=== PATIENT | female | born 2000 | race Caucasian/White ===

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

== ENCOUNTER → 2021-10-06 03:42 | Observation (INO) ==
[2021-10-06 02:34] LABS: Bilirubin,Urine Negative (Negative); Blood,Urine Negative (Negative); Clarity,Urine Clear (Clear); Color,Urine Yellow (Yellow); Glucose,Urine (UA) Normal (Normal); Ketones,Urine Negative (Negative); Leukocyte Esterase,Urine Trace (Negative); Nitrite,Urine Negative (Negative); PH,Urine 7.5 pH Units (5.0-8.0); Protein,Urine Negative (Neg-Trace); Urobilinogen,Urine Normal (Normal)
[2021-10-06 02:35] LABS: Bacteria,Urine Few per hpf (None-Few); RBC,Urine 0-3 per hpf (0-3); Squamous Epithelial Cell,Urine Few per hpf (None-Few); WBC,Urine 0-3 per hpf (0-3)
[2021-10-06 03:34] LABS: Gardnerella DNA Not Detected (Not Detect); Trichomonas DNA Not Detected (Not Detect)
[2021-10-06 03:35] LABS: Candida DNA Not Detected (Not Detect)
== END | disposition home or self-care (01) ==
LOC: 1NENULAB
PROVIDERS: ADMIT Obstetrics & Gynecology; ATTEND Obstetrics & Gynecology

== ENCOUNTER → 2021-10-22 16:50 | Observation (INO) | END | disposition home or self-care (01) | LOC: 1NENULAB | PROVIDERS: ADMIT Obstetrics & Gynecology; ATTEND Obstetrics & Gynecology ==

== ENCOUNTER 2021-10-31 07:52 | Inpatient (IN) ==
[2021-10-31] MEDS ORDERED: *HR* Nalbuphine 10 MG/ML AMPUL IV PRN (07:54)
[2021-10-31] MEDS ORDERED: Ondansetron 4 MG/2 ML VIAL IVP PRN (07:54)
[2021-10-31] MEDS ORDERED: Metoclopramide 10 MG/2 ML VIAL IVP PRN (07:54)
[2021-10-31] MEDS ORDERED: Famotidine 20 MG/2 ML VIAL IVP PRN (07:54)
[2021-10-31] MEDS ORDERED: Azithromycin 500 MG in 0.9 % Sodium Chloride 250 ML IVPB PRN (07:54)
[2021-10-31] MEDS ORDERED: Naloxone 0.4 MG/ML INJ IVP PRN (07:54)
[2021-10-31] MEDS ORDERED: miSOPROStoL 25 MCG TABLET PO PRN (08:17)
[2021-10-31] MEDS ORDERED: EPHEDrine 50 MG/ML VIAL IVP PRN (08:22)
[2021-10-31] MEDS ORDERED: Epidural Premix (fent/bupiv) 110 ML EP SCH (08:30)
[2021-10-31 09:02] LABS: Basophils % 0.2 %; Eosinophils # 0.1 K/mcL (0.0-0.6); Eosinophils % 1.5 %; Hematocrit 32.5 % (35.3-44.9); Hemoglobin 11.3 g/dL (11.5-15.4); Immature Granulocytes % 0.4 % (0-4); Lymphocytes # 1.7 K/mcL (0.6-4.6); Lymphocytes % 18.3 %; Mean Corpuscular HGB Conc 34.8 g/dL (31.6-35.5); Mean Corpuscular Hemoglobin 29.4 pg (28.0-33.3); Mean Corpuscular Volume 84.6 fL (83.0-100.0); Monocytes # 0.5 K/mcL (0.0-1.3); Monocytes % 5.8 %; Neutrophils # 6.8 K/mcL (1.6-8.9); Platelet Count 158 K/mcL (140-400); Red Blood Count 3.84 M/mcL (3.82-4.97); Red Cell Distribution Width 13.6 % (11.5-14.5); Segmented Neutrophils % 73.8 %; White Blood Count 9.2 K/mcL (4.3-11.1)
[2021-10-31 09:06] LABS: Amphetamine Screen,Urine Negative ng/mL (Cutoff=1000); Barbiturate Screen,Urine Negative ng/mL (Cutoff=200); Benzodiazepines Screen,Urine Negative ng/mL (Cutoff=200); Cannabinoid Screen,Urine Negative ng/mL (Cutoff = 50); Cocaine Screen,Urine Negative ng/mL (Cutoff= 300); Opiate Screen,Urine Negative ng/mL (Cutoff=300); Phencyclidine Screen,Urine Negative ng/mL (Cutoff=25)
[2021-10-31 09:31] LABS: Influenza A PCR Negative (Negative); Influenza B PCR Negative (Negative); Resp. Syncytial Virus PCR Negative (Negative)
[2021-10-31 09:40] LABS: SARS-CoV-2 by PCR (In House) Positive (Negative)
[2021-10-31] MEDS ORDERED: Oxytocin 20 units/ LR 1000 mL 20 UNIT/1,000 ML BAG IVC SCH (16:30)
[2021-10-31] MEDS: Ringers Solution, Lactated 1,000 ML IVC SCH (16:54)
[2021-10-31] MEDS ORDERED: *HR* Phenylephrine 10 MG/ML VIAL ONE (17:08)
[2021-10-31] MEDS ORDERED: Ondansetron 4 MG/2 ML VIAL ONE (17:09)
[2021-11-01] MEDS: Ringers Solution, Lactated 1,000 ML IVC SCH (01:29)
[2021-11-01] MEDS ORDERED: Ondansetron ODT 4 MG TAB.RAPDIS SL PRN (07:32)
[2021-11-01] MEDS ORDERED: Rho Immune Globulin 1,500 UNIT SYRINGE IM PRN (07:32)
[2021-11-01] MEDS ORDERED: Lanolin 7 G OINT...G. TP PRN (07:32)
[2021-11-01] MEDS ORDERED: Measles/Mumps/Rubella Vacc 0.5 ML VIAL SQ PRN (07:32)
[2021-11-01] MEDS ORDERED: Oxytocin 20 units/ LR 1000 mL 20 UNIT/1,000 ML BAG IVC SCH (07:32)
[2021-11-01] MEDS ORDERED: Benzocaine/Menthol 56 GM AEROSOL SPRAY TP PRN (07:32)
[2021-11-01] MEDS ORDERED: Oxytocin 20 units/ LR 1000 mL 20 UNIT/1,000 ML BAG IVC ONE (07:36)
[2021-11-01] MEDS: Ibuprofen 600 MG TABLET PO SCH ×3 (08:16→22:18)
[2021-11-01] MEDS: Prenatal Vit/FA 1 EACH TABLET PO SCH (13:38)
[2021-11-01] MEDS: Acetaminophen 325 MG TABLET PO SCH ×3 (13:38→22:18)
[2021-11-02] MEDS: Acetaminophen 325 MG TABLET PO SCH ×2 (04:41→10:35)
[2021-11-02] MEDS: Ibuprofen 600 MG TABLET PO SCH ×2 (04:41→10:35)
[2021-11-02 05:17] LABS: Basophils % 0.1 %; Eosinophils # 0.2 K/mcL (0.0-0.6); Eosinophils % 1.7 %; Hematocrit 29.1 % (35.3-44.9); Immature Granulocytes % 0.5 % (0-4); Lymphocytes # 1.6 K/mcL (0.6-4.6); Lymphocytes % 15.4 %; Mean Corpuscular Hemoglobin 28.5 pg (28.0-33.3); Mean Corpuscular Volume 86.4 fL (83.0-100.0); Mean Platelet Volume 10.9 fL (9.4-12.4); Monocytes # 0.8 K/mcL (0.0-1.3); Monocytes % 7.5 %; Neutrophils # 7.9 K/mcL (1.6-8.9); Platelet Count 140 K/mcL (140-400); Red Blood Count 3.37 M/mcL (3.82-4.97); Red Cell Distribution Width 13.7 % (11.5-14.5); Segmented Neutrophils % 74.8 %; White Blood Count 10.5 K/mcL (4.3-11.1)
[2021-11-02 05:19] LABS: Hemoglobin 9.6 g/dL (11.5-15.4)
[2021-11-02] MEDS: Prenatal Vit/FA 1 EACH TABLET PO SCH (10:37)
[2021-11-02 11:12] VITALS: BP 107/70; TEMP 99.1; O2SAT 99
[2021-11-02 11:15] VITALS: PULSE 104
== END 2021-11-02 13:35 | disposition home or self-care (01) | DRG 560 ==
LOC: 1NENULAB 07:52 → 1NENUOBS 11-01 09:17
PROVIDERS: ADMIT Obstetrics & Gynecology; ATTEND Obstetrics & Gynecology

== ENCOUNTER → 2022-08-18 21:51 | Observation (INO) | END | disposition home or self-care (01) | LOC: 1NENULAB | PROVIDERS: ADMIT Registered Nurse; ATTEND Registered Nurse ==